=== PATIENT | female | born 1985 | race Caucasian/White ===

== ENCOUNTER 2020-03-05 18:10 | Emergency (ER) | payer SELFPAY ==
[2020-03-05 18:33] VITALS: BP 116/65; PULSE 88; RESP 18; TEMP 36.6; O2SAT 99; BMI 34.2
--- NOTE | 2020-03-05 18:41 | PC.NURSE ---
patient a&ox3, vss, doppler 142, internal exam performed by provider, pt to be transferred to [facility], ems arrived- report given to ems pt transfer to care to ems.
--- NOTE | 2020-03-05 18:41 | ED.GENADULT ---
HPI - General Adult General Chief complaint: General Medical Stated complaint: contractions Time Seen by Provider: 03/05/20 18:41 History of Present Illness HPI narrative: 34-year-old female, G7, P6, EDC March 14, 2020 who presents to the emergency department complaining of contractions. The patient states that she has been having contractions for approximately 1 hour. She states that the contractions are 5-6 minutes apart. She is also complaining of back pain. The patient is from [place] and she states that she has been in [place] for 1 week. The patient states that all of her deliveries have been vaginal and she has not had any C-sections. Her only past medical history is anemia. She denies being ill in any other way, she denied fever, chills, cough, chest pain, shortness of breath, nausea or vomiting. Related Data Allergies Allergy/AdvReac Type Severity Reaction Status Date / Time shrimp Allergy Severe SWELLING Unverified 12/21/19 18:30 aspirin Allergy Unknown hives Verified 08/11/16 00:00 Seafood Allergy Unknown hives Uncoded 08/11/16 00:00 Review of Systems Review of Systems: Yes all other systems are reviewed and are negative Constitutional: Constitutional: Reports as per HPI Eyes: Eyes: Reports as per HPI ENT: Reports as per HPI Cardiovascular: Cardiovascular: Reports as per HPI Respiratory: Respiratory: Reports as per HPI Gastrointestinal: Gastrointestinal: Reports as per HPI Genitourinary: Genitourinary: Reports as per HPI Musculoskeletal: Musculoskeletal: Reports as per HPI Integumentary/Breasts: Skin/Breast: Reports as per HPI Neurologic: Reports as per HPI and Reports Abnormal speech present Psychiatric: Psychiatric: Reports as per HPI Allergic/Immunologic: Allergic/Immunologic: Reports as per HPI PMFSH Past Medical History [facility] Narrative: Patient has a history of anemia, she denies tobacco and alcohol use. Medical History Anemia Social History Social History Alcohol intake: never Smoked in Last 30 Days: No Use of substances other than those prescribed or required for medical reasons: No Advance Directives: No Advance Directives Information Provided: Yes Physical Exam Vital Signs: Vital Signs: Last Vital Signs Temp 97.9 F 03/05/20 18:33 Pulse 88 03/05/20 18:33 Resp 18 12/01/20 18:33 BP 116/65 03/05/20 18:33 Pulse Ox 99 03/05/20 18:33 Body Mass Index 34.2 Const: General: cooperative, healthy appearing and other (Appeared to be having a contraction initially triaged) Orientation/consciousness: patient oriented x3 Limitations: no limitations HENMT: Head: Yes normal to inspection Ears: hearing grossly normal bilaterally General nose exam: Normal external nose present Face and sinus: Yes normal facial exam Mouth: Normal oral and palatal mucosa present Throat: Yes posterior oropharynx normal Eyes: General: appearance normal, both eyes and all related structures Alignment and Position: alignment normal Eyelids: Yes eyelids normal Neck: Neck: Yes normal visual inspection and Yes full ROM Chest: Chest palpation & inspection: normal inspection of the chest Resp: Effort & Inspection: normal respiratory effort, able to speak in complete sentences, no audible wheezes, not labored and symmetric chest movement Auscultation: clear to auscultation bilaterally Cardio: Rate: regular rate Rhythm: regular rhythm Heart sounds: S1 normal heart sound present, S2 normal heart sound present and no murmurs GI: Inspection: Yes other (Gravid abdomen) Palpation (GI): Soft to palpation and nontender Auscultation: normal bowel sounds : General: Yes no CVA tenderness Speculum Exam - Cervix: Other cervical findings present (Cervix appears to be approximately 2 cm dilated) Bimanual exam- vagina & uterus: normal bimanual exam Back/Spine/Pelvis: Back: no CVA tenderness Skin: General skin exam: no rashes or lesions noted Neuro: General: patient oriented x3 and CN's II-XI intact bilaterally Cognition (Neuro): normal cognition Speech: Abnormal speech present Extrem: General: Yes normal to inspection Psych: Appearance: grossly normal Mental Status: mental status grossly normal Speech and movement: Normal speech and movement present Course Course Course Narrative: 34-year-old female, G7, P6, EDC 03/14/2020 who presents emergency department for evaluation of 1 hour contractions which are 5-6 minutes apart according to the patient. On presentation to triage she appeared to have an active contraction. She was brought back to the emergency department immediately evaluated by me. Patient's vital signs were normal with a blood pressure of 118/65 and a pulse of 89. Patient's vaginal exam revealed that she was not crying and that she is approximately 2 cm dilated. We do not have aeronautical design engineer available for precipitous deliveries therefore contacted [facility] and discussed the patient's presentation with the title assistant, Palmira Cole who accepted the patient in transfer. The patient be transferred by ALS ambulance to the [facility] had [facility]. 1851: At the time of transfer, the patient had only had 1 or 2 contractions while she was here in the emergency department and does not appear to be in active labor however given the fact that she is a G7 am concerned that she may progress rapidly and is still needs to be transferred to [facility] for further evaluation and observation. I did discuss this with the patient prior to transfer as well. Discharge Plan Discharge Clinical Impression: Active labor at term Patient Disposition: [facility]
--- NOTE | 2020-03-05 18:56 | PC.NURSE ---
report called to [facility] birthing unit
== END 2020-03-05 18:45 | disposition short-term general hospital (02) ==
PROVIDERS: Emergency Provider Emergency Medicine Emergency Medical Services
DX: O60.03 Preterm labor without delivery, third trimester (principal); Z3A.00 Weeks of gestation of pregnancy not specified
CPT/HCPCS: 99285

== ENCOUNTER → 2020-05-14 16:15 | Outpatient (BNVA) | payer OTHER, SELFPAY | PROVIDERS: Visit Provider Obstetrics & Gynecology ==

== ENCOUNTER 2021-01-02 16:13 | Emergency (ER) | payer MEDICAID, SELFPAY ==
[2021-01-02 16:54] VITALS: BP 121/58; PULSE 95; RESP 17; TEMP 36.8; O2SAT 100; BMI 38.8
[2021-01-02 18:35] LABS: Appearance Urine HAZY; Color Urine YELLOW; Glucose Urine UA NEG (NEG); Leukocyte Esterase Urine NEG (NEG); Nitrite Urine NEG (NEG); Specific Gravity - Urine >= 1.030 (1.005-1.025); UPreg QC Valid YES; Urine Blood NEG (NEG); Urine Ketones NEG (NEG); Urine Pregnancy POSITIVE (NEGATIVE); Urine Protein NEG (NEG-TRACE)
[2021-01-02 20:37] LABS: MANUAL DIFF FLAG NO
[2021-01-02 20:38] LABS: Basophils Percent Auto 0.3 % (0-2); Eosinophils Absolute Auto 0.1 X10*3/uL (0.0-0.4); Eosinophils Percent Auto 1.1 % (0-4); Imm Gran Abs Auto 0.03 X10*3/uL (0.00-0.03); Imm Gran Pct Auto 0.3 % (0.0-0.4); Lymphocytes Absolute Auto 2.1 X10*3/uL (1.2-4.9); Lymphocytes Percent Auto 22.5 % (20-40); Mean Corpuscular HGB Conc 32.4 g/dl (31.0-35.0); Mean Corpuscular Hemoglobin 24.7 pg (27.0-33.0); Mean Corpuscular Volume 76.4 fL (80-98); Mean Platelet Volume 11.6 fL (9.4-12.3); Monocytes Absolute Auto 0.9 X10*3/uL (0.1-1.2); Neutrophils Absolute Auto 6.3 X10*3/uL (2.0-8.3); Neutrophils Percent Auto 66.8 % (45-73); Platelet Count 279 X10*3/uL (160-400); Red Blood Count 4.45 X10*6/uL (4.20-5.50); Red Cell Distribution Width 16.1 % (11.0-16.0); White Blood Count 9.4 X10*3/uL (4.8-10.8)
[2021-01-02 20:52] LABS: Anion Gap 13 (12-20); Blood Urea Nitrogen 8 mg/dL (9-16); Calcium 8.9 mg/dL (8.4-10.2); Carbon Dioxide 22 mmol/L (22-29); Chloride 105 mmol/L (96-108); Creatinine Clr Calc Pharmacy 148.6; Estimated Glomerular Filt Rate > 60; Glucose Random 68 mg/dL (60-115); Potassium 3.8 mmol/L (3.3-5.1); Sodium 136 mmol/L (135-145)
--- NOTE | 2021-01-02 21:05 | PC.NURSE ---
Pt resting on stretcher in NAD, breathing with ease on RA, skin warm dry and normal in appearance. Pt awaiting provider eval at this time. Pt with towel over eyes d/t photosensitivity. Stretcher in low locked position, rails raised, remains visible to staff.
[2021-01-02 21:19] VITALS: BP 110/62; PULSE 69; RESP 14; O2SAT 100
--- NOTE | 2021-01-02 23:06 | PC.NURSE ---
Dr Velasco, with medical interpreter, just at bedside assessing/evaluating patient. This RN awaiting orders/dispo. Stretcher remains in low locked position, rails raised, visible to staff.
[2021-01-02] MEDS: Acetaminophen 325 MG TABLET 975 MG PO (23:42)
[2021-01-02] MEDS: Ondansetron ODT 4 MG TAB.RAPDIS TRANSLINGU (23:43)
[2021-01-02 23:46] VITALS: BP 133/78; PULSE 78; RESP 14; O2SAT 100
--- NOTE | 2021-01-03 00:19 | ED.GENADULT ---
HPI - General Adult General Chief complaint: General Medical Stated complaint: headache vomiting Time Seen by Provider: 01/02/21 22:43 Source: patient and interpreter translator Mode of arrival: ambulatory History of Present Illness HPI narrative: 35-year-old female without significant past medical history presents with couple of days of nausea and vomiting and headache and reports subjective fever but denies any sore throat, cough, urinary symptoms and states her LMP was last month. Otherwise she denies any abdominal pain, diarrhea. Related Data Previous Rx's Medication Instructions Recorded pyridoxine (vitamin B6) 25 mg 25 mg PO TID #60 tab 01/03/21 tablet Allergies Allergy/AdvReac Type Severity Reaction Status Date / Time shrimp Allergy Severe SWELLING Verified 01/02/21 16:54 aspirin Allergy Intermediate hives Verified 01/02/21 16:54 Seafood Allergy Intermediate hives Uncoded 01/02/21 16:54 Review of Systems Review of Systems: Pertinent positives and negatives as stated in HPI 10 point review of systems is otherwise negative. PMFSH Past Medical History Source: nursing notes reviewed Medical History Anemia Social History Social History Alcohol intake: never Advance Directives: No Advance Directives Information Provided: Yes Sexual orientation: Straight/Heterosexual Gender identity: Female Physical Exam Vital Signs: Vital Signs: Last Vital Signs Temp 98.2 F 01/02/21 16:54 Pulse 78 01/02/21 23:46 Resp 14 01/02/21 23:46 BP 133/78 01/02/21 23:46 Pulse Ox 100 01/02/21 23:46 Body Mass Index 38.8 VITAL SIGNS: Reviewed. GENERAL: Well developed, well nourished, in no acute distress. HEAD: Normocephalic/atraumatic EYES: PERRLA, EOMI NOSE: Nares patent bilateral OROPHARYNX: no oral lesions noted, posterior pharynx clear NECK: Supple, no adenopathy LUNGS: Normal breath sounds. No adventitious sounds or accessory muscle use. SpO2<100> CARDIOVASCULAR: Regular rate and rhythm without noted murmurs ABDOMEN: Obese, Soft, non-tender, non-distended with bowel sounds. SKIN: Inspection of the skin reveals no rashes NEUROLOGIC: Alert and oriented x 4. Course Course Course Narrative: 35-year-old female with history and clinical presentation review of all investigations consistent with . Patient denies any lower abdominal cramping or vaginal bleeding and was informed of diagnosis. In addition, patient was provided with Tylenol as well as sublingual Zofran and re-evaluated with p.o. challenge. On re-evaluation patient has had complete resolution of her headache as well as nausea and is tolerating oral intake. She is requesting to be discharged. Medical Decision Making Lab Data Result diagrams: 01/02/21 20:29 01/02/21 20:29 Labs: Lab Results 01/02/21 01/02/21 01/02/21 Range/Units 17:43 17:43 20:29 WBC 9.4 (4.8-10.8) X10*3/uL RBC 4.45 (4.20-5.50) X10*6/uL Hgb 11.0 L (12.0-16.0) g/dl Hct 34.0 L (37-47) % MCV 76.4 L (80-98) fL MCH 24.7 L (27.0-33.0) pg MCHC 32.4 (31.0-35.0) g/dl RDW 16.1 H (11.0-16.0) % Plt Count 279 (160-400) X10*3/uL MPV 11.6 (9.4-12.3) fL Immature Gran % (Auto) 0.3 (0.0-0.4) % Neut % (Auto) 66.8 (45-73) % Lymph % (Auto) 22.5 (20-40) % [place] % (Auto) 9.0 (2-11) % Eos % (Auto) 1.1 (0-4) % Baso % (Auto) 0.3 (0-2) % Lymph # (Auto) 2.1 (1.2-4.9) X10*3/uL [place] # (Auto) 0.9 (0.1-1.2) X10*3/uL Eos # (Auto) 0.1 (0.0-0.4) X10*3/uL Baso # (Auto) 0.0 (0.0-0.2) X10*3/uL Abs Immat Gran (auto) 0.03 (0.00-0.03) X10*3/uL Absolute Neuts (auto) 6.3 (2.0-8.3) X10*3/uL Absolute Nucleated RBC 0.000 (0.0-0.012) X10*3/uL Nucleated RBC % (auto) 0.0 (0.0-0.2) /100WBC Sodium (135-145) mmol/L Potassium (3.3-5.1) mmol/L Chloride (96-108) mmol/L Carbon Dioxide (22-29) mmol/L Anion Gap (12-20) BUN (9-16) mg/dL Creatinine (0.5-1.4) mg/dL Estim Creat Clear Calc Estimated GFR Random Glucose (60-115) mg/dL Calcium (8.4-10.2) mg/dL Urine Color YELLOW Urine Appearance HAZY Urine pH 6.0 (5.0-8.0) Ur Specific Wolcott >= 1.030 H (1.005-1.025) Urine Protein NEG (NEG-TRACE) MG/DL Urine Glucose (UA) NEG (NEG) MG/DL Urine Ketones NEG (NEG) MG/DL Urine Blood NEG (NEG) Urine Nitrite NEG (NEG) Ur Leukocyte Esterase NEG (NEG) Urine Test POSITIVE H (NEGATIVE) 01/02/21 Range/Units 20:29 WBC (4.8-10.8) X10*3/uL RBC (4.20-5.50) X10*6/uL Hgb (12.0-16.0) g/dl Hct (37-47) % MCV (80-98) fL MCH (27.0-33.0) pg MCHC (31.0-35.0) g/dl RDW (11.0-16.0) % Plt Count (160-400) X10*3/uL MPV (9.4-12.3) fL Immature Gran % (Auto) (0.0-0.4) % Neut % (Auto) (45-73) % Lymph % (Auto) (20-40) % Bur[place]on % (Auto) (2-11) % Eos % (Auto) (0-4) % Baso % (Auto) (0-2) % Lymph # (Auto) (1.2-4.9) X10*3/uL [place] # (Auto) (0.1-1.2) X10*3/uL Eos # (Auto) (0.0-0.4) X10*3/uL Baso # (Auto) (0.0-0.2) X10*3/uL Abs Immat Gran (auto) (0.00-0.03) X10*3/uL Absolute Neuts (auto) (2.0-8.3) X10*3/uL Absolute Nucleated RBC (0.0-0.012) X10*3/uL Nucleated RBC % (auto) (0.0-0.2) /100WBC Sodium 136 (135-145) mmol/L Potassium 3.8 (3.3-5.1) mmol/L Chloride 105 (96-108) mmol/L Carbon Dioxide 22 (22-29) mmol/L Anion Gap 13 (12-20) BUN 8 L (9-16) mg/dL Creatinine 0.72 (0.5-1.4) mg/dL Estim Creat Clear Calc 148.6 Estimated GFR > 60 Random Glucose 68 (60-115) mg/dL Calcium 8.9 (8.4-10.2) mg/dL Urine Color Urine Appearance Urine pH (5.0-8.0) Ur Specific Wolcott (1.005-1.025) Urine Protein (NEG-TRACE) MG/DL Urine Glucose (UA) (NEG) MG/DL Urine Ketones (NEG) MG/DL Urine Blood (NEG) Urine Nitrite (NEG) Ur Leukocyte Esterase (NEG) Urine Test (NEGATIVE) Discharge Plan Discharge Clinical Impression: Nausea and vomiting in Patient Disposition: Home, Self-Care Instructions: Vitamins (By mouth), Nausea and Vomiting in (ED), (ED) Additional Instructions: 1. Tylenol 1000 mg, por v?a oral, cada 6 horas seg?n sea necesario para controlar el dolor o el dolor de nathan. No exceda los 4000 mg en 24 horas. 2. Debe comenzar a hans vitaminas prenatales y hacer un seguimiento con wright m?dico de atenci?n primaria y / o wright obstetra. 3. Se le mcpherson proporcionado saul receta de medicamentos que tratar?n edmundo n?useas heidy el embarazo. No dude en regresar a la nikita de emergencias si experimenta un empeoramiento joe de edmundo s?ntomas. Prescriptions: New pyridoxine (vitamin B6) 25 mg tablet 25 mg PO TID Qty: 60 RF: 0 Referrals: [place],[facility] [Primary Care Provider] - 2 days Print Language: Maltese
== END 2021-01-03 00:48 | disposition home or self-care (01) ==
PROVIDERS: Emergency Provider Student in an Organized Health Care Education/Training Program
DX: R51.9 Headache, unspecified (principal); R11.2 Nausea with vomiting, unspecified; Z79.899 Other long term (current) drug therapy
CPT/HCPCS: 36415; 80048; 81003; 81025; 85025; 96374; 99284

== ENCOUNTER → 2021-02-19 14:57 | Outpatient (BNVA) | payer MEDICAID, SELFPAY | PROVIDERS: Visit Provider Advanced Practice Midwife | DX: O99.011 Anemia complicating pregnancy, first trimester (principal); D64.9 Anemia, unspecified; O09.41 Supervision of pregnancy with grand multiparity, first trimester; Z32.01 Encounter for pregnancy test, result positive; Z87.59 Personal history of other complications of pregnancy, childbirth and the puerperium; Z88.6 Allergy status to analgesic agent; Z91.013 Allergy to seafood; Z3A.12 12 weeks gestation of pregnancy | CPT/HCPCS: 81025; 99212 ==

== ENCOUNTER 2021-03-14 14:03 | Outpatient (REF) | payer OTHER, SELFPAY ==
--- NOTE | ~2021-03-14 | US_ITS ---
EXAMINATION: US OBSTETRICAL CLINICAL INFORMATION: 35-year-old at the 22.0 weeks of gestation Uncertain dates Screening for anomaly High BMI COMPARISON: None TECHNIQUE: Real-time transabdominal ultrasound was performed using C1-5 megahertz transducer. FINDINGS: A single, active, fetus is seen in vertex presentation. The placenta is posterior without previa, and the amniotic fluid volume is wnl. MEASUREMENTS: 1. Biparietal Diameter: 5.3 cm; 22.1 wks 2. Occipital Frontal Diameter: 7.0 cm 3. Head Circumference: 19.6 cm; 21.6 wks 4. Abdominal Circumference: 16.7 cm; 21.6 wks 5. Femur Length: 3.7 cm; 22.0 wks 6. Humerus Length: 3.4 cm; 21.5 wks 7. Tibia Length: 3.2 cm; 22.0 wks 8. Ulna Length: 3.2 cm; 22.1 wks 9. Lateral ventricle: 0.6 cm 10. Cerebellum: 2.1 cm; 21.3 wks 11. Cisterna Magna: 0.51 cm 12. Nuchal Fold: 3.11 mm 13. Heart Rate: 140 beats per minute Rt ovary: normal Lt ovary: normal Cervical length 4.1 cm on T/A. GESTATIONAL AGE: 1. Established GA: N/A wks 2. GA from [facility]: 22.0 wks ESTIMATED DATE OF DELIVERY: 1. Established GLEN: N/A 2. GLEN from [facility]: 07/18/2021 ANATOMY: The visualized anatomy includes but not limited to: 1. Cranium: Normal 2. Intracranial anatomy: cavum septum pellucidi, lateral ventricles, choroid plexus, cerebellum, posterior fossa, third and fourth ventricles. 3. face: orbits, lip/palate, profile, nasal bone 4. Heart: four-chamber view of the heart, ventricular septum, foramen ovale, pulmonary vein, left and right outflow tracts, three-vessel view, 3 vessel trachea view, aortic and ductal arches, situs.. 5. Diaphragm: Normal 6. Abdominal wall: Normal 7. Cord Insertion: Normal 8. Spine: Cervical, thoracic, lumbar, sacral. 9. Stomach: Normal size and shape 10. Right Kidney: Normal 11. Left Kidney: Normal 12. 3 vessel cord: Normal 13. Upper extremity: Open hands, fifth digit. 14. Lower extremity: Tibia, fibula, bilateral feet. 15. Bladder: Normal 16. Genitalia: Female, patient not aware US/US OB /maternal detail IMPRESSION: 1. Single, living, intrauterine with appropriate biometry. 2. Normal survey DISCUSSION: I reviewed today's ultrasound findings. We discussed the limitations of ultrasound in diagnosing aneuploidy and other congenital abnormalities. I reviewed the differences between screening test and diagnostic test. Amniocentesis was discussed and declined. She is interested in N IPT which was ordered today. She was informed that the baseline incidence of congenital abnormalities is approximately 3-5%. Not all these conditions are diagnosable in utero. RECOMMENDATIONS: 1. Follow-up when necessary Thank you for allowing me to participate in her care. Total time 30 minutes. The time spent was devoted to counseling the patient about the disease and diagnosis, coordinating care including reviewing her records, pertinent lab data and studies, as well as discussing diagnostic evaluation and workup, plan therapeutic interventions and future disposition of care. This includes any additional research needed to obtain further information in formulating the plan of care of this patient. This note was generated with a voice recognition program. Please excuse any errors which may have been overlooked during my review of this note. Sometimes these errors may affect the content or meaning of a given sentence.
== END 2021-03-14 14:04 | disposition home or self-care (01) ==
LOC: HO.US 14:03
PROVIDERS: Visit Provider Advanced Practice Midwife
DX: O35.9XX0 Maternal care for (suspected) fetal abnormality and damage, unspecified, not applicable or unspecified (principal); Z3A.22 22 weeks gestation of pregnancy
CPT/HCPCS: 76811

== ENCOUNTER → 2021-04-17 14:14 | Outpatient (BNVA) | payer OTHER, SELFPAY | PROVIDERS: Visit Provider Advanced Practice Midwife | DX: Z34.82 Encounter for supervision of other normal pregnancy, second trimester (principal); Z3A.26 26 weeks gestation of pregnancy | CPT/HCPCS: 99212 ==

== ENCOUNTER 2021-05-16 05:52 | Emergency (ER) | payer OTHER, SELFPAY ==
[2021-05-16 05:56] VITALS: BP 112/61; PULSE 101; RESP 16; TEMP 36.3; O2SAT 100; BMI 36.3
--- NOTE | 2021-05-16 06:52 | ED.PREGNANCY ---
HPI - General Chief complaint: OB Stated complaint: 30?wks . stomach pain Time Seen by Provider: 05/16/21 05:55 History of Present Illness HPI Narrative: Patient is a 35-year-old female C7 P 70 all vaginal deliveries patient is approximately 31 weeks . Confirmed by an ultrasound done in April 19. Complaining of low abdominal pain has been ongoing since last night. No vaginal discharge. No bleeding. No water leaking. Patient notice movement. Complaining of abdominal pain is lower abdomen. Cramping not related to position. Comes periodically every 20 minutes. He is immunized for COVID supposed to go to [facility]. As previously planned. No nausea vomiting no change in bowel movement no pain on urination Related Data Previous Rx's Medication Instructions Recorded vitamin with calcium 1 tab PO DAILY #100 tab 02/19/21 no.72-iron 27 mg-folic acid 1 mg tablet ( Vitamins Plus Low Iron) metoclopramide HCl 5 mg tablet 5 mg PO QIDACHS #120 tab 03/20/21 (Reglan) Allergies Allergy/AdvReac Type Severity Reaction Status Date / Time shrimp Allergy Severe SWELLING Verified 04/17/21 14:27 aspirin Allergy Intermediate hives Verified 04/17/21 14:27 Seafood Allergy Intermediate hives Uncoded 04/17/21 14:27 Review of Systems Review of Systems: No fever no chills No cough No congestion or upper respiratory symptoms Positive lower abdominal pain Yes all other systems are reviewed and are negative [facility] Past Medical History Medical History Anemia Family History Family History (Updated 04/17/21 @ 15:25 by Mylene Dubois LPN) Mother Hx of diabetes mellitus Sister Diabetes Maternal Grandmother Alzheimer's dementia Social History Social History (Updated 04/17/21 @ 15:28 by Mylene Dubois LPN) Household Members: Children Are you a primary personal care worker to a significant other at home: No Do you presently have visiting nurse or other home services: No Alcohol intake: never Trauma History: denies Advance Directives: No Patient : Yes Sexual orientation: Straight/Heterosexual Gender identity: Female Physical Exam Vital Signs: Vital Signs: Last Vital Signs Temp 97.3 F 05/16/21 05:56 Pulse 101 H 05/16/21 05:56 Resp 16 05/16/21 05:56 BP 112/61 05/16/21 05:56 Pulse Ox 100 05/16/21 05:56 BMI result Body Mass Index 36.3 Appearance: Alert. Oriented X3. No acute distress. Eyes: Pupils equal, round and reactive to light. ENT: Pharynx normal. Neck: Normal inspection. Neck supple. No lymph nodes noted. No crepitus CVS: Normal heart rate and rhythm. Pulses normal. Normal S1 and S2 Respiratory: No respiratory distress. Breath sounds normal. No Wheezing. No rales Abdomen: Soft and nontender. No rigidity. No distention. good BS x4 Refrigeration Unit Repairer exam done with nursing present no gross discharge noted in vagina. Cervix is closed Skin: Skin warm and dry. Normal skin color. Normal skin turgor. Extremities: No lower extremity edema. Neurovascular intact to all extremities. No Lacerations. No Rash Neuro: Oriented X 3. No motor deficit. No sensory deficit. Moving all extermities. No slurred speech MDM - OB/Uterine Contractions MDM Narrative Medical decision making narrative: Quick ultrasound was done. It seems like there is good movement. heart tone is approximately 150. On exam patient is cervix is closed. There is no vaginal discharge. Case will be discussed with [facility] for transfer. Discussed with patient risk and benefit of transfer agree with plan. Patient's case discussed with [facility]. Dr. Velázquez excepting patient's transfer. Risk and benefit of the transfer discussed with patient. She states understanding. Currently in stable condition Medical Records Attestation: I reviewed the patient's medical records. Lab Data Attestation: I reviewed the patient's lab results. Critical Care Time Critical Care Time Critical Care Time: Yes Total Critical Care Time: 35 Attestation: I have personally provided 35 minutes of critical care time exclusive of time spent on separately billable procedures. Time includes review of lab data, radiology results, discussion with consultants, and monitoring for potential decompensation. Interventions were performed as documented above Discharge Plan Discharge Clinical Impression: Premature labor Patient Disposition: Xfer [facility] Transfer Details: Transferred to [facility] We 2 Prescriptions: No Action metoclopramide HCl [Reglan] 5 mg tablet 5 mg PO QIDACHS Qty: 120 0RF Vitamin Plus Low Iron 27 mg iron- 1 mg tablet 1 tab PO DAILY Qty: 100 5RF
[2021-05-16] MEDS: 0.9 % Sodium Chloride 1,000 ML 999 ML IV (06:56)
--- NOTE | 2021-05-16 06:57 | PC.NURSE ---
Difficult stick. Kinsey ALVAREZ said she will call phlebotomy to come draw labs.
--- NOTE | 2021-05-16 07:04 | PC.NURSE ---
hr 150
[2021-05-16 07:13] LABS: COVID-19 Test Positive (Negative); IDNOW Serial# 55D5AD1C
--- NOTE | 2021-05-16 07:14 | PC.NURSE ---
pt states she can feel the baby moving, pressure to lower abd, vitals stable. pt is going to be transfered to [facility].
[2021-05-16 07:20] VITALS: BP 108/62; PULSE 83; RESP 14; O2SAT 99
[2021-05-16 07:33] LABS: Basophils Percent Auto 0.1 % (0-2); Eosinophils Absolute Auto 0.1 X10*3/uL (0.0-0.4); Eosinophils Percent Auto 1.8 % (0-4); Hemoglobin 9.2 g/dl (12.0-16.0); Imm Gran Abs Auto 0.06 X10*3/uL (0.00-0.03); Imm Gran Pct Auto 0.8 % (0.0-0.4); Lymphocytes Percent Auto 24.9 % (20-40); MANUAL DIFF FLAG NO; Mean Corpuscular HGB Conc 32.9 g/dl (31.0-35.0); Mean Corpuscular Hemoglobin 25.9 pg (27.0-33.0); Mean Corpuscular Volume 78.9 fL (80.0-98.0); Mean Platelet Volume 11.5 fL (9.4-12.3); Monocytes Absolute Auto 0.7 X10*3/uL (0.1-1.2); Monocytes Percent Auto 8.8 % (2-11); Neutrophils Absolute Auto 5.1 x10*3/uL (2.0-8.3); Neutrophils Percent Auto 63.6 % (45-73); Platelet Count 210 X10*3/uL (160-400); Red Blood Count 3.55 X10*6/uL (4.20-5.50); Red Cell Distribution Width 14.2 % (11.0-16.0)
--- NOTE | 2021-05-16 07:37 | PC.NURSE ---
PT 30 WEEKS GESTATION WITH ACTIVE CONTRACTIONS, FEATAL HR 152, TRANSPORTED TO THE [facility] REPORT CALLED TO TERRIE 2,
[2021-05-16 07:57] LABS: Alanine Aminotransferase 8 U/L (0-31); Albumin Level 3.2 g/dL (3.5-5.0); Alkaline Phosphatase 93 U/L (39-117); Anion Gap 9 (12-20); Aspartate Amino Transferase 9 U/L (5-31); Bilirubin Direct < 0.2 mg/dL (0.0-0.5); Bilirubin Total 0.3 mg/dL (0.0-1.0); Blood Urea Nitrogen 6 mg/dL (9-16); Calcium 8.1 mg/dL (8.4-10.2); Carbon Dioxide 21 mmol/L (22-29); Chloride 109 mmol/L (96-108); Creatinine Clr Calc Pharmacy 197.4; Estimated Glomerular Filt Rate > 60; Glucose Random 104 mg/dL (60-115); Lipase 13 U/L (8-78); Magnesium 1.7 mg/dL (1.6-2.6); Potassium 3.2 mmol/L (3.3-5.1); Sodium 136 mmol/L (135-145); Total Protein 5.9 g/dL (6.5-8.0)
== END 2021-05-16 07:39 | disposition short-term general hospital (02) ==
PROVIDERS: Emergency Medicine; Emergency Provider Emergency Medicine Emergency Medical Services
DX: O98.513 Other viral diseases complicating pregnancy, third trimester (principal); U07.1 COVID-19; O60.03 Preterm labor without delivery, third trimester; Z3A.31 31 weeks gestation of pregnancy
CPT/HCPCS: 80048; 80076; 83690; 83735; 85025; 86900; 86901; 87635; 96360; 99285; 99291

== ENCOUNTER 2021-06-05 14:39 | Outpatient (REF) | payer OTHER, SELFPAY ==
[2021-06-06 09:04] LABS: CT PCR NOT DETECTED (Not Detect.); NG PCR NOT DETECTED (Not Detect.)
[2021-06-06 09:42] LABS: BV Int Neg Control Negative (Negative); BV Int Pos Control Positive (Positive)
[2021-06-10 11:51] LABS: HPV 16 RNA NOT DETECTED (NOT DETECTED); HPV mRNA E6/E7 rflx Detected (Not Detected)
== END 2021-06-05 14:40 | disposition home or self-care (01) ==
LOC: HO.LAB 14:39
PROVIDERS: Advanced Practice Midwife; Visit Provider Advanced Practice Midwife
DX: Z34.93 Encounter for supervision of normal pregnancy, unspecified, third trimester (principal); Z3A.33 33 weeks gestation of pregnancy
CPT/HCPCS: 87480; 87491; 87510; 87591; 87624; 87625; 87660; 88142; 99212

== ENCOUNTER → 2022-06-15 14:52 | Outpatient (BNVA) | payer OTHER, SELFPAY | PROVIDERS: Visit Provider Physician Assistant Surgical ==

== ENCOUNTER 2022-12-06 20:06 | Emergency (ER) | payer OTHER, SELFPAY ==
--- NOTE | 2022-12-06 | ECG_ITS ---
Test Reason : chest pain Blood Pressure : / mmHG Vent. Rate : 071 BPM Atrial Rate : 071 BPM P-R Int : 164 ms QRS Dur : 090 ms QT Int : 396 ms P-R-T Axes : 020 047 012 degrees QTc Int : 430 ms Normal sinus rhythm Normal ECG No previous ECGs available Referred By: Generic ED Physician Electronically Signed By:PADMA LOZADA
[2022-12-06 20:18] VITALS: BP 104/53; BP 107/68; PULSE 73; PULSE 76; RESP 21; TEMP 37.1; O2SAT 100; BMI 38.4
[2022-12-06 20:36] LABS: MANUAL DIFF FLAG NO
[2022-12-06 20:41] LABS: Basophils Percent Auto 0.5 % (0-2); Eosinophils Absolute Auto 0.2 X10*3/uL (0.0-0.4); Eosinophils Percent Auto 1.9 % (0-4); Hematocrit 27.3 % (37.0-47.0); Hemoglobin 8.4 g/dl (12.0-16.0); Imm Gran Abs Auto 0.03 X10*3/uL (0.00-0.03); Imm Gran Pct Auto 0.3 % (0.0-0.4); Lymphocytes Absolute Auto 2.6 X10*3/uL (1.2-4.9); Lymphocytes Percent Auto 29.5 % (20-40); Mean Corpuscular HGB Conc 30.8 g/dl (31.0-35.0); Mean Corpuscular Hemoglobin 21.5 pg (27.0-33.0); Mean Corpuscular Volume 69.8 fL (80.0-98.0); Mean Platelet Volume 11.5 fL (9.4-12.3); Monocytes Absolute Auto 0.8 X10*3/uL (0.1-1.2); Neutrophils Absolute Auto 5.2 x10*3/uL (2.0-8.3); Neutrophils Percent Auto 58.8 % (45-73); Platelet Count 225 X10*3/uL (160-400); Red Blood Count 3.91 X10*6/uL (4.20-5.50); Red Cell Distribution Width 18.1 % (11.0-16.0); White Blood Count 8.8 X10*3/uL (4.8-10.8)
[2022-12-06 20:51] LABS: Anion Gap 10 (12-20); Blood Urea Nitrogen 17 mg/dL (9-16); Calcium 8.7 mg/dL (8.4-10.2); Carbon Dioxide 23 mmol/L (22-29); Chloride 111 mmol/L (96-108); Creatinine Clr Calc Pharmacy 125.2; Estimated Glomerular Filt Rate > 60; Glucose Random 93 mg/dL (60-115); Potassium 3.8 mmol/L (3.3-5.1); Sodium 140 mmol/L (135-145)
[2022-12-06 21:03] LABS: Troponin-I High Sensitivity < 2.7 ng/L (<3.5-17.0)
--- NOTE | 2022-12-06 21:08 | PC.NURSE ---
this rn assumed care from ems @ 2015. pt placed on monitor car operator. lab work obtained and sent to lab. ekg obtained. pt awaiting to be seen by ed provider pt family at bedside
--- NOTE | 2022-12-06 21:31 | ED_ITS ---
HPI - Chest Pain General Chief Complaint: Chest Pain Stated Complaint: Chest pain Time Seen by Provider: 12/06/22 21:03 Source: patient, family and hourly sign language interpreter Mode of arrival: EMS History of Present Illness HPI narrative: 37-year-old female without significant past medical history presents with onset of constant midsternal chest discomfort which worsens with movement and deep inspiration and is reproducible on self palpation this started approximately 1300 this afternoon after she finished her work, patient states she has not had this pain previously and denies any associated fever, chills, sore throat, cough, nausea/vomiting/abdominal pain and denies any alcohol or drug use. Related Data Previous Rx's Medication Instructions Recorded ferrous sulfate 324 mg (65 mg 324 mg PO TID #100 tabs 06/05/21 iron) tablet,delayed release hydrocortisone 1 % topical cream 1 appl topical BID-QID PRN skin 06/05/21 (Cortisone (hydrocortisone)) irritation #28.4 grams vitamin with calcium 1 tab PO DAILY #100 tabs 06/05/21 no.72-iron 27 mg-folic acid 1 mg tablet ( Vitamins Plus Low Iron) Allergies Allergy/AdvReac Type Severity Reaction Status Date / Time shrimp Allergy Severe SWELLING Verified 06/05/21 14:55 aspirin Allergy Intermediate hives Verified 04/17/21 14:27 Seafood Allergy Intermediate hives Uncoded 04/17/21 14:27 Review of Systems Review of Systems: Pertinent positives and negatives as stated [facility] Past Medical History Source: nursing notes reviewed Medical History Anemia Family History Family History Mother Hx of diabetes mellitus Sister Diabetes Maternal Grandmother Alzheimer's dementia Social History Social History Household Members: Children Are you a primary child care attendant to a significant other at home: No Do you presently have visiting nurse or other home services: No Alcohol intake: never Trauma History: denies Advance Directives: No Advance Directives Information Provided: No Sexual orientation: Straight/Heterosexual Gender identity: Female Physical Exam Vital Signs: Vital Signs: Last Vital Signs Temp 98.8 F 12/06/22 20:18 Pulse 73 12/06/22 20:18 Resp 21 H 12/06/22 20:18 BP 104/53 L 12/06/22 20:18 Pulse Ox 100 12/06/22 20:18 O2 Del Method Room Air 12/06/22 20:18 BMI result Body Mass Index 38.4 VITAL SIGNS: Reviewed. GENERAL: Well developed, well nourished, in no acute distress. HEAD: Normocephalic/atraumatic EYES: PERRLA, EOMI EARS: Ext canals without abnormality NOSE: Nares patent bilateral OROPHARYNX: no oral lesions noted, posterior pharynx clear NECK: Supple, no adenopathy LUNGS: Normal breath sounds. No adventitious sounds or accessory muscle use. SpO2<100> CARDIOVASCULAR: Regular rate and rhythm without noted murmurs, reproducible chest pain at distal portion of sternum ABDOMEN: Soft, non-tender, non-distended with bowel sounds. MUSCULOSKELETAL: No tenderness, deformities, or effusions noted on gross inspection. EXTREMITIES: No cyanosis, clubbing or edema. SKIN: Inspection of the skin reveals no rashes NEUROLOGIC: Alert and oriented x 4. Strength and sensation to light touch were grossly intact x 4. Medical Decision Making Medical Decision Making [facility] Narrative: 2119: 37-year-old female with history and clinical presentation, DDX: Muscul oskeletal, costochondritis, acid reflux, no clinical suspicion for pneumonia/ACS this patient is not have any dizziness/fevers/chills/cough/sore throat/past medical history is to suggest cardiac etiology patient is oxygenating well without tachypnea pain is reproducible and worsens with deep inspiration and movement. I reviewed all investigations, hematologic indices demonstrate a chronic but dec reased microcytic anemia, there is no thrombocytopenia and no leukocytosis or left shift again further corroborating the fact that this does appear to be in infectious etiology. Although patient is noted to be more anemic than usual she is not tachycardic/hypotensive and has no complaints regarding palpitations or dizziness. Chemistry indices demonstrate mild evidence of dehydration with an elevated BUN but no TOYIN and electrolyte values are within normal limits, troponin is undetectable which is consistent with my clinical exam/the history/the EKG which shows normal sinus rhythm and no evidence of STEMI. 2140: Patient received Tylenol/lidocaine patch as well as Magic mouthwash for her discomfort and discharged with presumptive treatment for a costochondritis and possibility of acid reflux. Differential Diagnosis Differential Diagnoses: The differential diagnosis associated with the presentation includes Please see the discussion above Admission/Observation Consideration of admission/observation: Escalation of care including admission/observation considered Please see the discussion above Lab Data MDM Lab Attestation statement: I reviewed the patient's lab results. Please see the discussion above 12/06/22 20:31 12/06/22 20:31 Labs: Lab Results 12/06/22 12/06/22 12/06/22 Range/Units 20:31 20:31 20:31 WBC 8.8 (4.8-10.8) X10*3/uL RBC 3.91 L (4.20-5.50) X10*6/uL Hgb 8.4 L (12.0-16.0) g/dl Hct 27.3 L (37.0-47.0) % MCV 69.8 L (80.0-98.0) fL MCH 21.5 L (27.0-33.0) pg MCHC 30.8 L (31.0-35.0) g/dl RDW 18.1 H (11.0-16.0) % Plt Count 225 (160-400) X10*3/uL MPV 11.5 (9.4-12.3) fL Immature Gran % (Auto) 0.3 (0.0-0.4) % Neut % (Auto) 58.8 (45-73) % Lymph % (Auto) 29.5 (20-40) % [place] % (Auto) 9.0 (2-11) % Eos % (Auto) 1.9 (0-4) % Baso % (Auto) 0.5 (0-2) % Lymph # (Auto) 2.6 (1.2-4.9) X10*3/uL [place] # (Auto) 0.8 (0.1-1.2) X10*3/uL Eos # (Auto) 0.2 (0.0-0.4) X10*3/uL Baso # (Auto) 0.0 (0.0-0.2) X10*3/uL Abs Immat Gran (auto) 0.03 (0.00-0.03) X10*3/uL Absolute Neuts (auto) 5.2 (2.0-8.3) x10*3/uL Absolute Nucleated RBC 0.000 (0.0-0.012) X10*3/uL Nucleated RBC % (auto) 0.0 (0.0-0.2) /100WBC Sodium 140 (135-145) mmol/L Potassium 3.8 (3.3-5.1) mmol/L Chloride 111 H (96-108) mmol/L Carbon Dioxide 23 (22-29) mmol/L Anion Gap 10 L (12-20) BUN 17 H (9-16) mg/dL Creatinine 0.86 (0.5-1.4) mg/dL Estim Creat Clear Calc 125.2 Estimated GFR > 60 Random Glucose 93 (60-115) mg/dL Calcium 8.7 D (8.4-10.2) mg/dL Troponin I High Sens < 2.7 (<3.5-17.0) ng/L Independent Interpretation I performed an independent interpretation of an: EKG Interpretation: Normal sinus rhythm, HR-71, no STEMI, NE/QRS/QTC is within normal limits. External Record Review External record reviewed: Outpatient record and Prior outpatient labs Discharge Plan Discharge Clinical Impression: Atypical chest pain, Costalchondritis, Anemia Patient Disposition: Home, Self-Care Instructions: Costochondritis (ED), Anemia (ED), Chest Wall Pain (ED) Additional Instructions: 1. Tylenol 1000 mg, por v?a oral, cada 6 horas seg?n sea necesario para controlar el dolor. No exceda los 4000 mg en 24 horas. 2. Parche de lidoca?na, apl?quelo en el ?abner de m?xima sensibilidad eleazar se indica en el paquete exterior. 3. Eulalia un seguimiento con wright proveedor de atenci?n primaria los pr?ximos 1 o 2 d?as para saul reevaluaci?n adicional del manejo ambulatorio. Regrese a la nikita de emergencias si los s?ntomas empeoran. 1. Tylenol 1000 mg, orally, every 6 hours as needed for pain control. Do not exceed 4000 mg within 24 hours. 2. Lidocaine patch, apply to area of maximal tenderness as directed on the outside packaging. 3. Please follow-up with your primary care provider the next 1-2 days for re- evaluation further outpatient management. Return to the ER for any worsening symptoms. Prescriptions: No Action ferrous sulfate 324 mg (65 mg iron) tablet,delayed release (DR/EC) 324 mg PO TID Qty: 100 0RF hydrocortisone [Cortisone (hydrocortisone)] 1 % cream 1 appl topical BID-QID PRN (Reason: skin irritation) Qty: 28.4 1RF Vitamin Plus Low Iron 27 mg iron- 1 mg tablet 1 tab PO DAILY Qty: 100 5RF Referrals: [facility] [Primary Care Provider] - Print Language: Upper Sorbian
[2022-12-06] MEDS: Acetaminophen 325 MG TABLET 975 MG PO (21:57)
[2022-12-06] MEDS: Mag&Al/Sim/Diphenhyd/Lidocaine 10 ML ORAL.SUSP PO (21:57)
[2022-12-06] MEDS: Lidocaine 4 % Patch ADH..PATCH 1 PATCH TRANSDERMA (21:57)
[2022-12-06 22:07] LABS: HCG Quantitative < 2 mIU/mL
[2022-12-06 22:10] VITALS: BP 111/60; PULSE 76; RESP 19; TEMP 36.7; O2SAT 100
--- NOTE | 2022-12-06 22:21 | PC.NURSE ---
pt medicated according to mar. pt familly remains at bedside. diplomatic interpreter utilized at discharge. iv removed. vss. pt ambulatory at discharge. pt provided with discharge packet. pt verbalized understanding of discharge plan
== END 2022-12-06 22:22 | disposition home or self-care (01) ==
PROVIDERS: Emergency Provider Student in an Organized Health Care Education/Training Program
DX: R07.89 Other chest pain (principal); M94.0 Chondrocostal junction syndrome [Tietze]; D64.9 Anemia, unspecified; Z79.899 Other long term (current) drug therapy
CPT/HCPCS: 36415; 80048; 84484; 84702; 85025; 93005; 99285

== ENCOUNTER 2023-02-19 07:42 | Emergency (ER) | payer MEDICAID, SELFPAY ==
--- NOTE | ~2023-02-19 | XR_ITS ---
EXAMINATION: XR SHOULDER, RIGHT CLINICAL INFORMATION: Right shoulder pain COMPARISON: None available. TECHNIQUE: AP external rotation, Grashey, scapular Y, and axillary views of the right shoulder. FINDINGS: The bones and soft tissues are normal. No fracture. Glenohumeral and acromioclavicular alignment is anatomic with normal joint space. No abnormal soft tissue calcifications. XR/XR shoulder RT min 2V IMPRESSION: Normal right shoulder.
[2023-02-19 08:02] VITALS: BP 125/56; PULSE 85; RESP 16; TEMP 36.2; O2SAT 97; BMI 37.7
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
[2023-02-19] MEDS: Acetaminophen 325 MG TABLET 650 MG PO (09:52)
== END 2023-02-19 11:01 | disposition home or self-care (01) ==
PROVIDERS: Emergency Provider Emergency Medicine
DX: M25.511 Pain in right shoulder (principal)
CPT/HCPCS: 73030; 99283

== ENCOUNTER 2023-08-26 14:01 | Outpatient (AMB) | payer OTHER, SELFPAY ==
--- NOTE | 2023-08-26 14:11 | MHC.OFFVIS ---
Vital Signs 08/26/23 14:18 Height 5 ft 9 in Weight 265 lb BMI 39.1 BP 122/70 Intake Visit Reasons: Menorrhagia Family Resource Specialist Required: Yes Family Resource Specialist Name: CINTHIA Washington,[id number] Information Interpreted: clinical only Mobile Home Laborer: Mobile Home Laborer Present Allergies shrimp Allergy (Severe, Verified 08/26/23 14:11) SWELLING aspirin Allergy (Intermediate, Verified 08/26/23 14:11) hives Seafood Allergy (Intermediate, Uncoded 08/26/23 14:11) hives Medication List - Last Reconciled 08/26/23 by Janis Hoffman CNM No Known Home Meds Is last menstrual period known: Yes Last menstrual period: 07/29/23 HPI HPI Menorrhagia: Details: Visit was done with the assistance of a scrap crusher although frankly most information was obtained without use of the scrap crusher my [place]. Patient did not know why the visit was scheduled for menorrhagia she says she does have irregular periods she says she is sent here by her doctor because her doctor told her she had a heart murmur and sent her to the music typographer but she does not know when that appointment is and also her. Was late however she spent the 1st 10 minutes of the visits saying that her last period was July 28 and it lasted about 5 days and then 2 weeks ago she did a test at home it was not until later in the visit in reviewing this for about the 3rd time in trying to figure out what made her do a test at home when she did not have a late. That she revealed that in fact it was late because her period was expected to come on July 28 but did not in fact come she does not know the exact date that it came in June. She has 7 children 1 of those pregnancies with twins and her last was delivered by at [facility] because that baby did not want to come out and there was something about high blood pressure but she does not remember what it was. I did share with her that for anyone with any risk factors in we would recommend that they start there care from the start at [facility] because there are various concerns in a over the age 37 and with any history of any complications and that there will need to be more screening and discussions regarding delivery and surveillance in the . She says she does have transportation but it can be challenging she has to get rides from her sister. She shared that her sister is diabetic. For now we will obtain an ultrasound to discover how far along she is I did attempt to this 2 heart but it was not audible. She is nauseous so I am prescribing vitamins as well as vitamin B6 and Unisom for nausea and I instructed her on use. If she has any complications or bleeding or severe vomiting she would need to go to [facility]'s evaluation and treatment unit and she knows this. We will have a visit after the ultrasound to see how far along she is and at that point she may need to receive the rest of her care at [facility] we will see. [facility] Medical History Anemia Family History Mother Hx of diabetes mellitus Sister Diabetes Maternal Grandmother Alzheimer's dementia Social History Household Members: Children Are you a primary manager intensive care unit to a significant other at home: No Do you presently have visiting nurse or other home services: No Alcohol intake: never Trauma History: denies Sexual orientation: Straight/Heterosexual Gender identity: Female Female Reproductive History Menstrual Age of Menarche: 18 Duration of menses: 3-5 days Date of last menstrual period: 07/29/23 control method: none Total pregnancies: 7 Full term: 8 Date of last pap smear: 06/06/21 (Epithelial cell abnormality) History of abnormal pap smear: Yes Physical Exam Vital Signs: Last Vital Signs BP 122/70 08/26/23 14:18 BMI result Body Mass Index 39.1 Other: Adipose noted unable to palpate fundus patient believes she is probably the 2 months this could possibly be consistent with the unable to auscultate FHT. Results AMB Test Urine AMB Test Urine Positive Last Edit by Mohinder Adame CMA on 08/26/23 14:37 Results Reviewed Results Reviewed: Laboratory Last Values [facility] Positive 08/26/23 14:32 Assessment & Plan Assessment & Plan (1) test positive: Code(s): Z32.01 - Encounter for test, result positive Category: Medical (2) Hx of twin in prior : Code(s): Z87.59 - Personal history of other complications of , childbirth and the puerperium Category: Medical (3) Menstrual periods irregular: Code(s): N92.6 - Irregular menstruation, unspecified Category: Medical (4) Nausea and vomiting in : Code(s): O21.9 - Vomiting of , unspecified Category: Medical Plan Visit was done with the assistance of a scrap crusher although frankly most information was obtained without use of the scrap crusher my [place]. Patient did not know why the visit was scheduled for menorrhagia she says she does have irregular periods she says she is sent here by her doctor because her doctor told her she had a heart murmur and sent her to the music typographer but she does not know when that appointment is and also her. Was late however she spent the 1st 10 minutes of the visits saying that her last period was July 28 and it lasted about 5 days and then 2 weeks ago she did a test at home it was not until later in the visit in reviewing this for about the 3rd time in trying to figure out what made her do a test at home when she did not have a late. That she revealed that in fact it was late because her period was expected to come on July 28 but did not in fact come she does not know the exact date that it came in June. She has 7 children 1 of those pregnancies with twins and her last was delivered by at [facility] because that baby did not want to come out and there was something about high blood pressure but she does not remember what it was. I did share with her that for anyone with any risk factors in we would recommend that they start there care from the start at [facility] because there are various concerns in a over the age 35 and with any history of any complications and that there will need to be more screening and discussions regarding delivery and surveillance in the . She says she does have transportation but it can be challenging she has to get rides from her sister. She shared that her sister is diabetic. For now we will obtain an ultrasound to discover how far along she is I did attempt to this 2 heart but it was not audible. She is nauseous so I am prescribing vitamins as well as vitamin B6 and Unisom for nausea and I instructed her on use. If she has any complications or bleeding or severe vomiting she would need to go to [facility]'s evaluation and treatment unit and she knows this. We will have a visit after the ultrasound to see how far along she is and at that point she may need to receive the rest of her care at [facility] we will see. Orders: Orders US OB <= 14 weeks fetus Today N92.6 - Irregular menstruation, unspecified, Z32.01 - Encounter for test, result positive, Z87.59 - Personal history of other complications of , childbirth and the puerperium AMB HCG Urine Test Today Z32.01 - Encounter for test, result positive Medications: New doxylamine succinate (Unisom (doxylamine)) 25 mg PO BEDTIME PRN 30 tabs 0RF sleep PNV,calcium 99-jmou-pnoyb acid 27 mg iron- 1 mg ( Vitamins Plus Low Iron) 1 tab PO DAILY 90 tabs 4RF pyridoxine (vitamin B6) 25 mg PO TID 90 tabs 0RF Coding Level of Care Code Est Pt Level 3 (96999) Diagnoses test positive Z32.01 Hx of twin in prior Z87.59 Menstrual periods irregular N92.6 Nausea and vomiting in O21.9
[2023-08-26 14:18] VITALS: BP 122/70; BMI 39.1
== END 2023-08-26 15:00 | disposition home or self-care (01) ==
LOC: HO.HWSM 14:01
PROVIDERS: Visit Provider Advanced Practice Midwife
DX: Z32.01 Encounter for pregnancy test, result positive (principal); Z87.59 Personal history of other complications of pregnancy, childbirth and the puerperium; N92.6 Irregular menstruation, unspecified; O21.9 Vomiting of pregnancy, unspecified
CPT/HCPCS: 99213

== ENCOUNTER → 2023-08-26 14:01 | Outpatient (BNVA) | payer OTHER, SELFPAY | PROVIDERS: Visit Provider Advanced Practice Midwife | DX: O21.9 Vomiting of pregnancy, unspecified (principal); O26.899 Other specified pregnancy related conditions, unspecified trimester; N92.6 Irregular menstruation, unspecified; Z87.59 Personal history of other complications of pregnancy, childbirth and the puerperium | CPT/HCPCS: 81025; 99212 ==

== ENCOUNTER 2023-09-02 15:04 | Outpatient (REF) | payer OTHER, SELFPAY ==
--- NOTE | ~2023-09-02 | US_ITS ---
EXAMINATION: US OBSTETRICAL ULTRASOUND CLINICAL INFORMATION: Personal history of other complications of , Positive test COMPARISON: None available. LMP: 06/28/2023. Gestational age by maternal dates is 9 weeks 3 days. Estimated date of delivery by maternal dates is 04/03/2024. TECHNIQUE: Transabdominal and transvaginal scanning of the pelvis was performed. FINDINGS: There is a single intrauterine gestational sac with visible yolk sac, embryo/fetus, and cardiac activity. There is no significant subchorionic hemorrhage or hematoma. HR: 156 beats per minute. CRL (crown rump length): 2.59 cm (9 weeks 3 days +/- 4 days). GLEN (estimated date of delivery): 04/03/2024 +/- 4 days. MATERNAL ADNEXA: The right maternal ovary measures 3.9 x 3.0 x 2.7 cm. 2.2 x 1.5 x 1.9 cm complex cyst is seen in the right ovary. In The left maternal ovary measures 3.2 x 2.2 x 2.3 cm. 2.2 x 1.8 x 2.1 cm complex cyst in the left ovary may represent the corpus luteum. US/US OB <= 14 weeks fetus IMPRESSION: 1. Single intrauterine gestation with ultrasound gestational age of 9 weeks 3 days +/- 4 days. Size equals dates. 2. Estimated date of delivery is 04/03/2024 +/- 4 days. 3. Bilateral complex ovarian cysts. One of these likely represents the corpus luteum. Follow-up in 6-8 weeks could be performed for reevaluation.
== END 2023-09-02 15:05 | disposition home or self-care (01) ==
LOC: HO.US 15:04
PROVIDERS: Visit Provider Advanced Practice Midwife
DX: O09.521 Supervision of elderly multigravida, first trimester (principal); O26.891 Other specified pregnancy related conditions, first trimester; Z87.59 Personal history of other complications of pregnancy, childbirth and the puerperium; Z3A.09 9 weeks gestation of pregnancy
CPT/HCPCS: 76801

== ENCOUNTER 2023-09-17 13:33 | Outpatient (AMB) | payer OTHER, SELFPAY ==
--- NOTE | 2023-09-17 13:37 | A.OFFVIS_ITS ---
Vital Signs 09/17/23 13:41 Height 5 ft 9 in Weight 262 lb BMI 38.7 BP 126/70 Intake Visit Reasons: Ultrasound Follow up Information Interpreted: clinical only Marine Resource Economist: Marine Resource Economist Present Allergies shrimp Allergy (Severe, Verified 09/17/23 13:42) SWELLING aspirin Allergy (Intermediate, Verified 09/17/23 13:42) hives Seafood Allergy (Intermediate, Uncoded 09/17/23 13:42) hives Medication List - Last Reconciled 09/17/23 by Janis Hoffman CNM PNV,calcium 18-pdlp-iupwa acid 27 mg iron- 1 mg ( Vitamins Plus Low Iron) 1 tab PO DAILY pyridoxine (vitamin B6) 25 mg PO TID HPI HPI Ultrasound Follow up: Details: Patient is here for follow-up of her ultrasound that was done September 01 she had a diagnosed at her last visit. She is 7 para 7 7 0 8, she had twins with the last and had a with the last 1. She was not exactly sure when her last period was she was sent for an ultrasound to determine dating of the ultrasound was done 09/02/2023 but has not been read by Radiology yet I called today for a ?wet read of the ultrasound done on that day and on that day she was 9 weeks and 3 sevens with a heart of 156 with a corpus luteum on the left and nothing else untoward seen.. The patient is a grand multipara she is over 38 years old and BMI of 38.7 and a history of previous , all of these reasons would recommend to her receiving all of her care from the very start at [facility] [place]. She will be given a letter indicating her GLEN today and I urged her to call today to try and make an appointment at [facility] to arrange for care as soon as possible. She knows where with [facility] evaluation and treatment unit is and her partner took a picture of the address so that they could located quickly if need be urgency. Discussed the importance of the first-trimester evaluations for genetic anomalies and idea she would have a 1st trimester nuchal translucency ultrasound and genetic screening test on by next week however there is no nurse available to arrange for scheduling of this today so I am asking the patient to call today herself to try to get in for care soon hopefully with the GLEN letter this can be accomplished. She still has some nausea and would like some medication for it I did send the prescription for the vitamin B6 at the last visit but she says when she went to the pharmacy was not there so I am resending it to her [facility] pharmacy on [address] [facility] where it went before. Discussed some of the issues that make her little bit more high risk with this her age of 38 her BMI of 38 her previous history of and that 1 of the interventions they may do is to in the as well as monitor her for growth carefully. She says she understands the reasons to be cared for at [facility]. Patient is signing for records to be sent. [facility] Medical History Anemia Family History Mother Hx of diabetes mellitus Sister Diabetes Maternal Grandmother Alzheimer's dementia Social History Household Members: Children Both parents involved: No Are you a primary medicare biller to a significant other at home: No Do you presently have visiting nurse or other home services: No 75 years or older and lives alone: No Alcohol intake: never Trauma History: denies Sexual orientation: Straight/Heterosexual Gender identity: Female Female Reproductive History Menstrual Age of Menarche: 18 Duration of menses: 3-5 days Date of last menstrual period: 07/29/23 Total pregnancies: 7 Full term: 8 Date of last pap smear: 06/06/21 (Epithelial cell abnor.) History of abnormal pap smear: No Physical Exam Vital Signs: Last Vital Signs BP 126/70 09/17/23 13:41 BMI result Body Mass Index 38.7 Assessment & Plan Assessment & Plan (1) Nausea and vomiting in : Code(s): O21.9 - Vomiting of , unspecified Category: Medical (2) Hx of twin in prior : Code(s): Z87.59 - Personal history of other complications of , childbirth and the puerperium Category: Medical (3) Early stage of : Comment: Preliminary reading of ultrasound gets GLEN of 04/03/2024 11 weeks and 4 7th today patient to receive all care at [facility] see note. Code(s): Z34.90 - Encounter for supervision of normal , unspecified, unspecified trimester Category: Medical Plan Patient is here for follow-up of her ultrasound that was done September 01 she had a diagnosed at her last visit. She is 7 para 7 7 0 8, she had twins with the last and had a with the last 1. She was not exactly sure when her last period was she was sent for an ultrasound to determine dating of the ultrasound was done 09/02/2023 but has not been read by Radiology yet I called today for a ?wet read of the ultrasound done on that day and on that day she was 9 weeks and 3 sevens with a heart of 156 with a corpus luteum on the left and nothing else untoward seen.. The patient is a grand multipara she is over 38 years old and BMI of 38.7 and a history of previous , all of these reasons would recommend to her re ceiving all of her care from the very start at [facility] [place]. She will be given a letter indicating her GLEN today and I urged her to call today to try and make an appointment at [facility] to arrange for care as soon as possible. She knows where with [facility] evaluation and treatment unit is and her partner took a picture of the address so that they could located quickly if need be urgency. Discussed the importance of the first-trimester evaluations for genetic anomalies and idea she would have a 1st trimester nuchal translucency ultrasound and genetic screening test on by next week however there is no nurse available to arrange for scheduling of this today so I am asking the patient to call today herself to try to get in for care soon hopefully with the GLEN letter this can be accomplished. She still has some nausea and would like some medication for it I did send the prescription for the vitamin B6 at the last visit but she says when she went to the pharmacy was not there so I am resending it to her [facility] pharmacy on [address] where it went before. Discussed some of the issues that make her little bit more high risk with this her age of 38 her BMI of 38 her previous history of and that 1 of the interventions they may do is to in the as well as monitor her for growth carefully. She says she understands the reasons to be cared for at [facility]. Patient is signing for records to be sent. Medications: Refilled pyridoxine (vitamin B6) 25 mg PO TID 90 tabs 0RF Coding Level of Care Code Est Pt Level 3 (32999) Diagnoses Nausea and vomiting in O21.9 Hx of twin in prior Z87.59 Early stage of Z34.90
[2023-09-17 13:41] VITALS: BP 126/70; BMI 38.7
== END 2023-09-17 14:35 | disposition home or self-care (01) ==
LOC: HO.HWSM 13:33
PROVIDERS: Visit Provider Advanced Practice Midwife
DX: O21.9 Vomiting of pregnancy, unspecified (principal); Z3A.10 10 weeks gestation of pregnancy
CPT/HCPCS: 99213

== ENCOUNTER → 2023-09-17 13:33 | Outpatient (BNVA) | payer OTHER, SELFPAY | PROVIDERS: Visit Provider Advanced Practice Midwife | DX: O21.9 Vomiting of pregnancy, unspecified (principal); Z87.59 Personal history of other complications of pregnancy, childbirth and the puerperium | CPT/HCPCS: 99212 ==

== ENCOUNTER 2023-09-30 11:38 | Outpatient (AMB) | payer OTHER, SELFPAY ==
--- NOTE | 2023-09-30 11:39 | MHC.OFFVIS ---
Intake Visit Reasons: TV Ultrasound results Allergies shrimp Allergy (Severe, Verified 09/17/23 13:42) SWELLING aspirin Allergy (Intermediate, Verified 09/17/23 13:42) hives Seafood Allergy (Intermediate, Uncoded 09/17/23 13:42) hives HPI HPI TV Ultrasound results: Details: This is a tele visit to review patient's ultrasound, again of 09/02/23, which now, the official reading of which, just came yesterday September 28. It sites too small complex ovarian cysts, 1 it which is most likely a corpus luteum cyst and the other undetermined. The recommendation was for 6-8 week follow-up u/s. I called the patient. she had signed consent for records to be sent to [facility] so that she could obtain her care in [facility] pursuant to the full discussion on 09/17/2023. however apparently when she was trying to arrange an appointment at [facility], they wanted her to sign for records to be released again, so she came to the office yesterday, and signed another record release on September 28. It is not clear what happened with the September 16 record release which is in the system, additionally I talked to her about transfer of care in a timely fashion so as to ensure that patient received her nuchal translucency ultrasound and genetic screening in time, however it does not appear that that has occurred either. At this point the patient is telling me that she was waiting for a phone call from [facility] to get her into care there and I can see in the system now that an hour and a half ago records were transferred. . I did explained all this to the patient including the bilateral cysts which will be reassessed most likely when she has her 18-20 week ultrasound at [facility] I did tell her that now it appears that she is too late to receive her nuchal translucency ultrasound but any genetic screening they will recommend will be done per them at [facility]. [facility] Medical History Anemia Family History Mother Hx of diabetes mellitus Sister Diabetes Maternal Grandmother Alzheimer's dementia Social History Household Members: Children Both parents involved: No Are you a primary date night caregiver to a significant other at home: No Do you presently have visiting nurse or other home services: No 75 years or older and lives alone: No Alcohol intake: never Trauma History: denies Sexual orientation: Straight/Heterosexual Gender identity: Female Female Reproductive History Menstrual Age of Menarche: 18 Telehealth Telehealth Telehealth Platform: Telephone Location of provider rendering services: practice address Location of patient: address on file Patient Identification confirmed using: Name, : Yes Telehealth method: voice only Patient verbally consented to treatment: Yes Patient verbally consented to billing insurance company: Yes Patient informed of any privacy concerns related to visit: Yes Results Reviewed Results Reviewed: Patient: Carlota Garcia MR#: [id number] : 1985 Acct:[id number] Age/Sex: 38 / F ADM Date: 09/02/23 Loc: .US Attending Dr: Janis Hoffman CNM Ordering Physician: Janis Hoffman CNM Date of Service: 09/02/23 Procedure(s): US OB <= 14 weeks fetus Accession Number(s): [id number] cc: [employer]; Janis Hoffman CNM~ EXAMINATION: US OBSTETRICAL ULTRASOUND CLINICAL INFORMATION: Personal history of other complications of , Positive test COMPARISON: None available. LMP: 06/28/2023. Gestational age by maternal dates is 9 weeks 3 days. Estimated date of delivery by maternal dates is 04/03/2024. TECHNIQUE: Transabdominal and transvaginal scanning of the pelvis was performed. FINDINGS: There is a single intrauterine gestational sac with visible yolk sac, embryo/fetus, and cardiac activity. There is no significant subchorionic hemorrhage or hematoma. HR: 156 beats per minute. CRL (crown rump length): 2.59 cm (9 weeks 3 days +/- 4 days). GLEN (estimated date of delivery): 04/03/2024 +/- 4 days. MATERNAL ADNEXA: The right maternal ovary measures 3.9 x 3.0 x 2.7 cm. 2.2 x 1.5 x 1.9 cm complex cyst is seen in the right ovary. In The left maternal ovary measures 3.2 x 2.2 x 2.3 cm. 2.2 x 1.8 x 2.1 cm complex cyst in the left ovary may represent the corpus luteum. US/US OB <= 14 weeks fetus IMPRESSION: 1. Single intrauterine gestation with ultrasound gestational age of 9 weeks 3 days +/- 4 days. Size equals dates. 2. Estimated date of delivery is 04/03/2024 +/- 4 days. 3. Bilateral complex ovarian cysts. One of these likely represents the corpus luteum. Follow-up in 6-8 weeks could be performed for reevaluation. Dictated By: Allison Sam MD Signed By: <Electronically signed by Allison Sam MD in OV> 09/28/23 1404 DD/ 1539 TD/TT: Library Customer Service Clerk: PLEASE NOTE THIS ULTRASOUND WAS DONE August AND WAS OFFICIALLY READ 09/28/2023. THE PATIENT AND I HAD OF AN APPOINTMENT ON 09/16 TO REVIEW THE RECORDS OF THE ULTRASOUND HOWEVER IT WAS READY AT THAT VISIT AND I OBTAINED A VERBAL REPORT FROM THE ULTRASOUND DEPARTMENT. SO THIS VISIT IS TO REVIEW THE OFFICIAL READING WHICH HAS JUST COME THROUGH.-MO'B Assessment & Plan Assessment & Plan (1) Early stage of : Comment: Preliminary reading of ultrasound gets GLEN of 04/03/2024 11 weeks and 4 7th today patient to receive all care at [facility] see note. Code(s): Z34.90 - Encounter for supervision of normal , unspecified, unspecified trimester Category: Medical Plan This is a tele visit to review patient's ultrasound, again of 09/02/23, which now, the official reading of which, just came yesterday September 28. It sites too small complex ovarian cysts, 1 it which is most likely a corpus luteum cyst and the other undetermined. The recommendation was for 6-8 week follow-up u/s. I called the patient. she had signed consent for records to be sent to [facility] so that she could obtain her care in [facility] pursuant to the full discussion on 09/17/2023. however apparently when she was trying to arrange an appointment at [facility], they wanted her to sign for records to be released again, so she came to the office yesterday, and signed another record release on September 28. It is not clear what happened with the September 16 record release which is in the system, additionally I talked to her about transfer of care in a timely fashion so as to ensure that patient received her nuchal translucency ultrasound and genetic screening in time, however it does not appear that that has occurred either. At this point the patient is telling me that she was waiting for a phone call from [facility] to get her into care there and I can see in the system now that an hour and a half ago records were transferred. . I did explained all this to the patient including the bilateral cysts which will be reassessed most likely when she has her 18-20 week ultrasound at [facility] I did tell her that now it appears that she is too late to receive her nuchal translucency ultrasound but any genetic screening they will recommend will be done per them at [facility]. Coding Level of Care Code Tele Est Pt Level 3 (80723) Diagnoses Early stage of Z34.90
== END 2023-09-30 12:52 | disposition home or self-care (01) ==
LOC: HO.HWSM 11:38
PROVIDERS: Visit Provider Advanced Practice Midwife
DX: Z34.90 Encounter for supervision of normal pregnancy, unspecified, unspecified trimester (principal)
CPT/HCPCS: 99213

== ENCOUNTER → 2023-09-30 11:38 | Outpatient (BNVA) | payer OTHER, SELFPAY | PROVIDERS: Visit Provider Advanced Practice Midwife ==